=== PATIENT | female | born 1980 | race Caucasian/White ===

== ENCOUNTER 2016-06-03 20:07 | Emergency (ER) | payer OTHER ==
[~2016-06-03] VITALS: Ht 165.1 cm; Wt 83.1 kg
[~2016-06-03 20:07] MED LIST: ENDOCET 5-3251 EACH PO; IBUPROFEN800 MG PO; MOTRIN800 MG PO; PRENATA CHEWAB1 EACH PO
[2016-06-03 21:11] LABS: HEMATOCRIT 38.3 % (36.0-46.0); MCH 28.8 PG (29.0-34.0); MCHC 34.5 G/DL (30.0-36.0); MCV 83.6 FL (83-99); MEAN PLAT.VOLUME 9.5 uM^3 (9.5-12.4); PLATELET COUNT 211 K/uL (156-360); RBC DIS.WIDTH-CV 13.4 % (11.8-14.6); RBC DIS.WIDTH-SD 40.2 % (39-53); RED BLOOD COUNT 4.58 M/uL (3.80-5.20); WHITE BLOOD COUNT 2.8 K/uL (4.1-10.2)
[2016-06-03] MEDS ORDERED: NORGESTIMATE-E1 EACH PO (21:13)
[2016-06-03 21:19] LABS: CHLORIDE 102 mEq/L (99-109); POTASSIUM 3.6 mEq/L (3.7-5.4); SODIUM 141 mEq/L (136-147)
[2016-06-03 21:20] LABS: GLUCOSE 98 mg/dL (70-99)
[2016-06-03 21:22] LABS: ANION GAP 11 MEQ/L (2-14)
[2016-06-03 21:24] LABS: GFR ESTIMATE (CALCULATED) > 59 mL/min/
[2016-06-03 21:25] LABS: UREA NITROGEN (BUN) 7 mg/dL (9-23)
[2016-06-03 21:55] LABS: D-DIMER ELISA 0.38 mg/L FEU (< 0.57)
[2016-06-03] MEDS ORDERED: ZITHROMAX Z-PA250 MG PO (23:23)
[2016-06-03] MEDS ORDERED: PREDNISONE10 M1 PO (23:23)
[2016-06-03] MEDS ORDERED: VENTOLIN HFA18 GM IH (23:23)
[2016-06-03 23:31] VITALS: BP 140/89
== END 2016-06-03 23:33 | disposition home or self-care (01) ==
LOC: EME 20:07
DX: J06.9 Acute upper respiratory infection, unspecified (principal); R06.2 Wheezing
CPT/HCPCS: 71020; 80048; 85027; 85379; 94644; 99281; 99284; J7512